=== PATIENT | male | born 1975 | race Two or more races ===

== ENCOUNTER 2017-06-23 11:52 | Inpatient (IN) | payer OTHER ==
[2017-06-23 11:56] VITALS: BMI 21.0
--- NOTE | 2017-06-23 17:13 | HP ---
CIWA Score - CIWA Score Nausea/Vomitin-Mild Nausea/No Vomiting Muscle Tremors: 2 Anxiety: 2 Agitation: 1-Slight > Activity Paroxysmal Sweats: 2 Orientation: 1-Uncertain about Date Tacttile Disturbances: 2-Mild Itch/Numbness/Burn Auditory Disturbances: 0-None Visual Disturbances: 1-Very Mild Sensitivity Headache: 2-Mild CIWA-Ar Total Score: 14 Admission ROS S - HPI Chief Complaint: WITHDRAWAL SYMPTOMS Allergies/Adverse Reactions: Allergies Allergy/AdvReac Type Severity Reaction Status Date / Time penicillin G Allergy Hives Verified 06/23/17 16:46 History of Present Illness: 41 Y.O. MAN WITH AN EXTENSIVE HISTORY OF ALCOHOL AND COCAINE DEPENDENCE IS HERE SEEKING DETOX. HE DOES NOT HAVE A SIGNIFICANT PERIOD SOBER AND DENIES RECENT DETOX/REHAB SERVICES. Exam Limitations: No Limitations - Ebola screening Have you traveled outside of the country in the last 21 days: No Have you had contact with anyone from an Ebola affected area: No Have you been sick,other than usual withdrawal symptoms: No Do you have a fever: No - Review of Systems Constitutional: Chills, Diaphoresis, Loss of Appetite, Unintentional Wgt. Loss EENT: reports: No Symptoms Reported Respiratory: reports: No Symptoms reported Cardiac: reports: Lightheadedness GI: reports: No Symptoms Reported : reports: Dysuria (H/O KIDNEY STONES) Musculoskeletal: reports: Back Pain, Neck Pain Integumentary: reports: No Symptoms Reported Neuro: reports: No Symptoms reported Endocrine: reports: No Symptoms Reported Hematology: reports: Anemia (H/O JOHANNE), Easy Bleeding, Easy Bruising Psychiatric: reports: Judgement Intact, Mood/Affect Appropiate, Orientated x3, Depressed Other Systems: Reviewed and Negative (BIPOLAR) Patient History - Patient Medical History Hx Anemia: Yes (NO MEDICATIONS ) Hx Asthma: No Hx Chronic Obstructive Pulmonary Disease (COPD): No Hx Cancer: No Hx Cardiac Disorders: No Hx Congestive Heart Failure: No Hx Hypertension: No Hx Hypercholesterolemia: No Hx Pacemaker: No HX Cerebrovascular Accident: No Hx Seizures: No Hx Diabetes: No Hx Gastrointestinal Disorders: No Hx Liver Disease: No Hx Genitourinary Disorders: No Hx Sexually Transmitted Disorders: Yes (syphilis at age 18) Hx Renal Disease (ESRD): No Hx Thyroid Disease: No Hx Human Immunodeficiency Virus (HIV): Yes (HIV DX 1996) Hx Hepatitis C: No Hx Depression: Yes Hx Suicide Attempt: Yes (pill overdose in 2012) Hx Bipolar Disorder: Yes Hx Schizophrenia: No - Patient Surgical History Past Surgical History: No Hx Neurologic Surgery: No Hx Cataract Extraction: No Hx Cardiac Surgery: No Hx Lung Surgery: No Hx Breast Surgery: No Hx Breast Biopsy: No Hx Abdominal Surgery: No Hx Appendectomy: No Hx Cholecystectomy: No Hx Genitourinary Surgery: No Hx Section: No Hx Orthopedic Surgery: No Anesthesia Reaction: No - PPD History Previous Implant?: Yes Documented Results: Negative w/o proof Implanted On Prior R Admission?: No PPD to be Administered?: Yes - Reproductive History Patient is a Female of Child Bearing Age (11 -55 yrs old): No - Smoking Cessation Smoking history: Current every day smoker Have you smoked in the past 12 months: Yes Aproximately how many cigarettes per day: 20 Hx Chewing Tobacco Use: No Initiated information on smoking cessation: Yes 'Breaking Loose' booklet given: 06/23/17 - Substance & Tx. History Hx Alcohol Use: Yes Hx Substance Use: Yes Substance Use Type: Alcohol, Cocaine Hx Substance Use Treatment: Yes (DETOX: 1999; REHAB: 2014) - Substances Abused Crack Route: Smoking Frequency: 1-2 times per week Amount used: $300 Age of first use: 16 Date of Last Use: 06/22/17 Alcohol-beer Route: Oral Frequency: Daily Amount used: 3-6 pks. Age of first use: 11 Date of Last Use: 06/22/17 Family Disease History - Family Disease History Family History: Denies Admission Physical Exam BHS - Vital Signs Vital Signs: Vital Signs - 24 hr 06/23/17 11:54 Temperature 97.8 F Pulse Rate 81 Respiratory 19 Rate Blood Pressure 112/66 - Physical General Appearance: Yes: Disheveled, Sweating, Anxious HEENTM: Yes: Hearing grossly Normal, Normocephalic Respiratory: Yes: Chest Non-Tender, Lungs Clear, Normal Breath Sounds, No Respiratory Distress, No Accessory Muscle Use Neck: Yes: No masses,lesions,Nodules, Trachea in good position Breast: Yes: Breast Exam Deferred Cardiology: Yes: Regular Rhythm, Regular Rate Abdominal: Yes: Normal Bowel Sounds, Non Tender, Flat Genitourinary: Yes: Dysuria (REPORTS HEMATURIA) Back: Yes: Normal Inspection Musculoskeletal: Yes: Back pain Extremities: Yes: Normal Capillary Refill, Normal Inspection Neurological: Yes: order entry specialist II-XII NML intact, Alert, Normal Mood/Affect, Normal Response Integumentary: Yes: Normal Color, Dry, Warm Lymphatic: Yes: Within Normal Limits - Diagnostic (1) Alcohol dependence with uncomplicated withdrawal Current Visit: Yes Status: Chronic (2) Cocaine dependence, uncomplicated Current Visit: Yes Status: Chronic (3) Kidney stones Current Visit: Yes Status: Chronic (4) Nicotine dependence Current Visit: Yes Status: Chronic (5) HIV (human immunodeficiency virus infection) Current Visit: Yes Status: Chronic Cleared for Admission [facility] - Detox or Rehab [facility] Level of Care: Medically Managed Detox Regimen/Protocol: Librium [facility] Breath Alcohol Content Breath Alcohol Content: 0.163 Urine Drug Screen - Results Drug Screen Negative: No Urine Drug Screen Results: ELIECER-Cocaine
[2017-06-23] MEDS ORDERED: MAG HYDROX/AL HYDROX/SIMETH 30 ML UNIT-DOSE CUP PO PRN (17:27)
[2017-06-23] MEDS ORDERED: MENTHOL/PHENOL 1 EACH UD MM PRN (17:27)
[2017-06-23] MEDS ORDERED: chlordiazePOXIDE HCL 25 MG CAPSULE PO PRN (17:27)
[2017-06-23] MEDS ORDERED: LOPERAMIDE HCL 2 MG CAPSULE PO PRN (17:27)
[2017-06-23] MEDS ORDERED: ACETAMINOPHEN 325 MG TABLET (FP) PO PRN (17:27)
[2017-06-23] MEDS ORDERED: hydrOXYzine PAMOATE 50 MG CAPSULE (FP) PO PRN (17:27)
[2017-06-23] MEDS ORDERED: MAGNESIUM HYDROX 2400MG/30ML ORAL SUSPENSION 30 ML CUP PO PRN (17:27)
[2017-06-23] MEDS ORDERED: guaiFENesin/D-METHORPHAN HB 10 ML UNIT-DOSE CUPS PO PRN (17:27)
[2017-06-23] MEDS ORDERED: MAGNESIUM CITRATE 300 ML BOTTLE PO PRN (17:27)
[2017-06-23] MEDS ORDERED: P-EPHED 60MG/TRIPROLIDI 2.5MG TABLET PO PRN (17:27)
[2017-06-23] MEDS ORDERED: diphenhydrAMINE HCL 50 MG CAPSULE PO PRN (17:29)
[2017-06-23] MEDS ORDERED: chlordiazePOXIDE HCL 25 MG CAPSULE PO ONE (18:15)
[2017-06-23] MEDS: THIAMINE HCL 100 MG TABLET (FP) PO SCH (22:50)
[2017-06-23] MEDS: chlordiazePOXIDE HCL 25 MG CAPSULE PO SCH (22:50)
[2017-06-24 02:35] LABS: URINE APPEARANCE CLEAR; URINE BILIRUBIN NEGATIVE (NEGATIVE); URINE BLOOD NEGATIVE (NEGATIVE); URINE COLOR COLORLESS; URINE GLUCOSE (UA) NEGATIVE (NEGATIVE); URINE KETONE NEGATIVE (NEGATIVE); URINE LEUK ESTERASE NEGATIVE (NEGATIVE); URINE NITRITE NEGATIVE (NEGATIVE); URINE PROTEIN NEGATIVE (NEGATIVE); URINE UROBILINOGEN NEGATIVE mg/dL (0.2-1.0)
[2017-06-24] MEDS: chlordiazePOXIDE HCL 25 MG CAPSULE PO SCH ×4 (05:13→22:25)
[2017-06-24] MEDS: PRENATAL VITAMINS W/ FOLIC ACID TABLET (FP) PO SCH (10:09)
[2017-06-24] MEDS: NICOTINE POLACRILEX 2 MG GUM BC PRN ×2 (10:10→22:29)
[2017-06-24] MEDS: NICOTINE 21 MG/24 HOURS TOPICAL PATCH TD SCH (10:10)
[2017-06-24] MEDS: IBUPROFEN 400 MG TABLET (FP) PO PRN (10:13)
[2017-06-24 10:15] LABS: MCH 31.6 pg (25.7-33.7); MCHC 32.7 g/dl (32.0-35.9); MEAN CELL VOLUME 96.5 fl (80-96); MEAN PLT VOLUME 8.9 fl (7.5-11.1); PLATELET COUNT 140 K/MM3 (134-434); RDW 16.5 % (11.9-15.9); WHITE BLOOD COUNT 2.3 K/mm3 (4.0-10.0)
[2017-06-24 10:24] LABS: ALBUMIN 3.5 g/dl (3.4-5.0); ANION GAP 5 (8-16); CALCIUM 8.3 mg/dL (8.5-10.1); CO2 30 mmol/L (21-32); GLUCOSE,RANDOM 105 mg/dL (74-106); SGOT/AST 19 U/L (15-37); SGPT/ALT 32 U/L (12-78)
[2017-06-24 10:26] LABS: ALK PHOS 67 U/L (45-117); BILIRUBIN,TOTAL 0.4 mg/dL (0.2-1.0); TOT PROT 6.9 g/dl (6.4-8.2)
[2017-06-24 12:14] LABS: URINE LEUK ESTERASE Negative (NEGATIVE)
--- NOTE | 2017-06-24 13:58 | CONSULT ---
[facility] Psychiatric Consult - Data Date of interview: 06/24/17 Admission source: [facility] Identifying data: First admission to [facility] for this 41 y/o male seeking detox treatment on for alcohol and cocaine (crack) dependence.Patient is ,a father of one,homeless,unemployed and supported on Public Assistance. Substance Abuse History: Confirmed by patient in this interb=view.See current [facility] report for details : Smoking history: Current every day smoker. Have you smoked in the past 12 months: Yes. Aproximately how many cigarettes per day: 20. Hx Chewing Tobacco Use: No. Initiated information on smoking cessation: Yes. 'Breaking Loose' booklet given: 06/23/17. - Substance & Tx. History. Hx Alcohol Use: Yes. Hx Substance Use: Yes. Substance Use Type: Alcohol, Cocaine. Hx Substance Use Treatment: Yes (DETOX: 1999; REHAB: 2014). - Substances Abused. Crack. Route: Smoking. Frequency: 1-2 times per week. Amount used: $300. Age of first use: 16. Date of Last Use: 06/22/17. Alcohol-beer. Route: Oral. Frequency: Daily. Amount used: 3-6 pks. Age of first use: 11. Date of Last Use: 06/22/17 Medical History: Anemia,HIV infection since 1996 and past history of treatment for syphilis (age 18). Psychiatric History: Reportedly diagnosed with Bipolar Disorder.Prescribed depakote 750 mg po bid + olanzapine 15 mg/hs.Patient admits to a history of multiple psychiatric hospitalizations ([facility] and various other sites) throughout his " more than 20 year history " of mental illness.Mr Dyer indicates that the housestaff psychiatrist at [facility] in [facility] oversees his medications management.Patient endorses a history of suicide attempts via overdoses and rosey-mutilation (wrist-cutting in 2011). Physical/Sexual Abuse/Trauma History: No reported history of abuse. Additional Comment: Urine Drug Screen Results: ELIECER-Cocaine.Noted. Mental Status Exam - Mental Status Exam Alert and Oriented to: Time, Place, Person Cognitive Function: Good Patient Appearance: Well Groomed Mood: Nervous, Withdrawn, Anxious Affect: Mood Congruent, Constricted Patient Behavior: Fatigued, Talkative, Appropriate, Cooperative Speech Pattern: Clear, Appropriate Voice Loudness: Normal Thought Process: Goal Oriented Thought Disorder: Not Present Hallucinations: Denies Suicidal Ideation: Denies Homicidal Ideation: Denies Insight/Judgement: Poor Sleep: Poorly, Difficulty falling asleep Appetite: Good Muscle strength/Tone: Normal Gait/Station: Normal Psychiatric Findings - Problem List ([place] 1, 2,3) (1) Alcohol dependence with uncomplicated withdrawal Current Visit: Yes Status: Acute (2) Cocaine dependence, uncomplicated Current Visit: Yes Status: Acute (3) Nicotine dependence Current Visit: Yes Status: Acute (4) Substance induced mood disorder Current Visit: Yes Status: Acute (5) Bipolar disorder Current Visit: Yes Status: Chronic (6) Insomnia Current Visit: Yes Status: Acute - Initial Treatment Plan Initial Treatment Plan: Psychoeducation.Sleep hygiene.Detoxification in progress.Medications : depakote 500 mg po bid + zyprexa 15 mg po hs + ambien 5 mg po hs prn.Side effects/benefits of each drug are discussed with the patient.He is made aware of the risks for blood dyscrasias,sedation,weight gain, liver dysfunction,alopecia (valproate),metabolic syndrome,cardiovascular adverse events (olanzapine) and parasomnias (ambien).Mr Dyer reports history of good tolerability to this regimen and consents (verbally) to adhere to this plan of care.Valproic acid level requested.Will follow.Observation.Noted pharmacy claims of 03/23/17 at [facility] # [id number] for depakote 250 mg tab # 180/30 days + olanzapine 15 mg tab # 30 (no renewals since that date).
--- NOTE | 2017-06-24 17:03 | PN ---
S CIWA - CIWA Score Nausea/Vomitin-No Nausea/No Vomiting Muscle Tremors: 3 Anxiety: 4-Mod. Anxious/Guarded Agitation: 3 Paroxysmal Sweats: 3 Orientation: 0-Oriented Tacttile Disturbances: 0-None Auditory Disturbances: 0-None Visual Disturbances: 0-None Headache: 0-None Present CIWA-Ar Total Score: 13 BHS Progress Note (SOAP) Subjective: Sweating,interrupted sleep,restless Objective: 06/24/17 17:02 Vital Signs - 8 hr 06/24/17 06/24/17 10:00 15:27 Temperature 97.9 F 97.9 F Pulse Rate 73 65 Respiratory 20 17 Rate Blood Pressure 116/62 121/78 Laboratory Tests 06/23/17 06/24/17 06/24/17 20:35 07:50 07:50 WBC 2.3 L RBC 4.30 Hgb 13.6 Hct 41.5 MCV 96.5 H MCH 31.6 MCHC 32.7 RDW 16.5 H Plt Count 140 MPV 8.9 Sodium 141 Potassium 4.1 Chloride 106 Carbon Dioxide 30 Anion Gap 5 L BUN 14 Creatinine 1.0 Creat Clearance w eGFR > 60 Random Glucose 105 Calcium 8.3 L Total Bilirubin 0.4 AST 19 ALT 32 Alkaline Phosphatase 67 Total Protein 6.9 Albumin 3.5 Urine Color Colorless Urine Appearance Clear Urine pH 6.0 Ur Specific [place] 1.002 Urine Protein Negative Urine Glucose (UA) Negative Urine Ketones Negative Urine Blood Negative Urine Nitrite Negative Urine Bilirubin Negative Urine Urobilinogen Negative Ur Leukocyte Esterase Negative RPR Titer 06/24/17 07:50 WBC RBC Hgb Hct MCV MCH MCHC RDW Plt Count MPV Sodium Potassium Chloride Carbon Dioxide Anion Gap BUN Creatinine Creat Clearance w eGFR Random Glucose Calcium Total Bilirubin AST ALT Alkaline Phosphatase Total Protein Albumin Urine Color Urine Appearance Urine pH Ur Specific [place] Urine Protein Urine Glucose (UA) Urine Ketones Urine Blood Urine Nitrite Urine Bilirubin Urine Urobilinogen Ur Leukocyte Esterase RPR Titer Nonreactive labs noted Assessment: 06/24/17 17:03 Withdrawal sx. Plan: Continue detox
[2017-06-24] MEDS: ZOLPIDEM TARTRATE 5 MG TABLET PO PRN (22:25)
[2017-06-24] MEDS: THIAMINE HCL 100 MG TABLET (FP) PO SCH (22:25)
[2017-06-24] MEDS: DIVALPROEX SODIUM 500 MG TABLET E.C. PO SCH (22:25)
[2017-06-24] MEDS: OLANZapine 7.5 MG TABLET PO SCH (22:55)
[2017-06-25] MEDS: chlordiazePOXIDE HCL 25 MG CAPSULE PO SCH ×3 (05:50→17:44)
[2017-06-25] MEDS: DIVALPROEX SODIUM 500 MG TABLET E.C. PO SCH ×2 (12:04→23:41)
[2017-06-25] MEDS: PRENATAL VITAMINS W/ FOLIC ACID TABLET (FP) PO SCH (12:05)
[2017-06-25] MEDS: NICOTINE 21 MG/24 HOURS TOPICAL PATCH TD SCH (12:06)
--- NOTE | 2017-06-25 13:01 | PN ---
S CIWA - CIWA Score Nausea/Vomitin-Mild Nausea/No Vomiting Muscle Tremors: 3 Anxiety: 4-Mod. Anxious/Guarded Agitation: 3 Paroxysmal Sweats: 3 Orientation: 0-Oriented Tacttile Disturbances: 0-None Auditory Disturbances: 0-None Visual Disturbances: 0-None Headache: 0-None Present CIWA-Ar Total Score: 14 S Progress Note (SOAP) Subjective: Sweating,anxiety,tremors,interrupted sleep,restless Objective: 06/25/17 13:02 Vital Signs - 8 hr 06/25/17 06/25/17 06:50 11:38 Temperature 96.4 F L 97.2 F L Pulse Rate 50 L 65 Respiratory 16 18 Rate Blood Pressure 131/72 119/68 Laboratory Tests 06/23/17 06/24/17 06/24/17 20:35 07:50 07:50 WBC 2.3 L RBC 4.30 Hgb 13.6 Hct 41.5 MCV 96.5 H MCH 31.6 MCHC 32.7 RDW 16.5 H Plt Count 140 MPV 8.9 Sodium 141 Potassium 4.1 Chloride 106 Carbon Dioxide 30 Anion Gap 5 L BUN 14 Creatinine 1.0 Creat Clearance w eGFR > 60 Random Glucose 105 Calcium 8.3 L Total Bilirubin 0.4 AST 19 ALT 32 Alkaline Phosphatase 67 Total Protein 6.9 Albumin 3.5 Urine Color Colorless Urine Appearance Clear Urine pH 6.0 Ur Specific [place] 1.002 Urine Protein Negative Urine Glucose (UA) Negative Urine Ketones Negative Urine Blood Negative Urine Nitrite Negative Urine Bilirubin Negative Urine Urobilinogen Negative Ur Leukocyte Esterase Negative Valproic Acid RPR Titer 06/24/17 06/25/17 07:50 07:40 WBC RBC Hgb Hct MCV MCH MCHC RDW Plt Count MPV Sodium Potassium Chloride Carbon Dioxide Anion Gap BUN Creatinine Creat Clearance w eGFR Random Glucose Calcium Total Bilirubin AST ALT Alkaline Phosphatase Total Protein Albumin Urine Color Urine Appearance Urine pH Ur Specific [place] Urine Protein Urine Glucose (UA) Urine Ketones Urine Blood Urine Nitrite Urine Bilirubin Urine Urobilinogen Ur Leukocyte Esterase Valproic Acid < 3.000 L RPR Titer Nonreactive labs noted Assessment: 06/25/17 13:03 Withdrawal sx Plan: Continue detox
--- NOTE | 2017-06-25 17:15 | EKG ---
Test Reason : Blood Pressure : / mmHG Vent. Rate : 074 BPM Atrial Rate : 074 BPM P-R Int : 120 ms QRS Dur : 094 ms QT Int : 386 ms P-R-T Axes : 053 083 063 degrees QTc Int : 428 ms NORMAL SINUS RHYTHM NORMAL ECG NO PREVIOUS ECGS AVAILABLE Confirmed by CHARLES VENTURA MD ([id number]) on 06/25/2017 5:15:33 PM Referred By: MAHNAZ BLNATON Confirmed By:CHARLES VENTURA MD
[2017-06-25] MEDS ORDERED: INSULIN (NOVOLOG) ASPART 100 UNITS/ML 10ML VIAL ONE (22:21)
[2017-06-25] MEDS: THIAMINE HCL 100 MG TABLET (FP) PO SCH (23:41)
[2017-06-25] MEDS: chlordiazePOXIDE 5 MG CAPSULE PO SCH (23:41)
[2017-06-25] MEDS: OLANZapine 7.5 MG TABLET PO SCH (23:42)
[2017-06-26] MEDS: chlordiazePOXIDE 5 MG CAPSULE PO SCH ×3 (05:44→17:06)
[2017-06-26] MEDS: NICOTINE 21 MG/24 HOURS TOPICAL PATCH TD SCH (10:13)
[2017-06-26] MEDS: DIVALPROEX SODIUM 500 MG TABLET E.C. PO SCH ×2 (10:13→22:13)
[2017-06-26] MEDS: PRENATAL VITAMINS W/ FOLIC ACID TABLET (FP) PO SCH (10:13)
--- NOTE | 2017-06-26 13:20 | PN ---
BHS Progress Note (SOAP) Subjective: interrupted sleep, sweats, shakes, neck pains Objective: 06/26/17 13:18 Vital Signs Temperature 98.1 F 06/26/17 09:28 Pulse Rate 76 06/26/17 09:28 Respiratory Rate 18 06/26/17 09:28 Blood Pressure 121/68 06/26/17 09:28 O2 Sat by Pulse Oximetry (%) Laboratory Tests 06/23/17 06/24/17 06/24/17 20:35 07:50 07:50 WBC 2.3 L RBC 4.30 Hgb 13.6 Hct 41.5 MCV 96.5 H MCH 31.6 MCHC 32.7 RDW 16.5 H Plt Count 140 MPV 8.9 Sodium 141 Potassium 4.1 Chloride 106 Carbon Dioxide 30 Anion Gap 5 L BUN 14 Creatinine 1.0 Creat Clearance w eGFR > 60 Random Glucose 105 Calcium 8.3 L Total Bilirubin 0.4 AST 19 ALT 32 Alkaline Phosphatase 67 Total Protein 6.9 Albumin 3.5 Urine Color Colorless Urine Appearance Clear Urine pH 6.0 Ur Specific [place] 1.002 Urine Protein Negative Urine Glucose (UA) Negative Urine Ketones Negative Urine Blood Negative Urine Nitrite Negative Urine Bilirubin Negative Urine Urobilinogen Negative Ur Leukocyte Esterase Negative Valproic Acid RPR Titer 06/24/17 06/25/17 07:50 07:40 WBC RBC Hgb Hct MCV MCH MCHC RDW Plt Count MPV Sodium Potassium Chloride Carbon Dioxide Anion Gap BUN Creatinine Creat Clearance w eGFR Random Glucose Calcium Total Bilirubin AST ALT Alkaline Phosphatase Total Protein Albumin Urine Color Urine Appearance Urine pH Ur Specific [place] Urine Protein Urine Glucose (UA) Urine Ketones Urine Blood Urine Nitrite Urine Bilirubin Urine Urobilinogen Ur Leukocyte Esterase Valproic Acid < 3.000 L RPR Titer Nonreactive pt aox3 , lying in bed then ambulating well neck good rom Assessment: 06/26/17 13:19 withdrawal sx's neck pain Plan: cont detox increase fluids analgesic balm d/c in am
[2017-06-26 21:44] VITALS: TEMP 98.1
[2017-06-26] MEDS ORDERED: METHYL SALICYLATE/MENTHOL OINT 30 GM TUBE TP SCH (22:00)
[2017-06-26] MEDS: THIAMINE HCL 100 MG TABLET (FP) PO SCH (22:13)
[2017-06-26] MEDS: ZOLPIDEM TARTRATE 5 MG TABLET PO PRN (22:13)
[2017-06-26] MEDS: OLANZapine 7.5 MG TABLET PO SCH (22:13)
[2017-06-26] MEDS: chlordiazePOXIDE HCL 10 MG CAPSULE PO SCH (22:14)
[2017-06-27] MEDS: chlordiazePOXIDE HCL 10 MG CAPSULE PO SCH (05:13)
[2017-06-27 06:02] VITALS: BP 130/62; PULSE 57
[2017-06-27] MEDS: DIVALPROEX SODIUM 500 MG TABLET E.C. PO SCH (09:49)
[2017-06-27] MEDS: PRENATAL VITAMINS W/ FOLIC ACID TABLET (FP) PO SCH (09:49)
[2017-06-27] MEDS: IBUPROFEN 400 MG TABLET (FP) PO PRN (09:50)
--- NOTE | 2017-06-27 11:44 | DS ---
[facility] Detox Discharge Summary Admission Date: 06/23/17 Discharge Date: 06/27/17 - History Present History: Alcohol Dependence, Cocaine Dependence Pertinent Past History: HIV Nephrolithiasis - Physical Exam Results Vital Signs: Vital Signs Temperature 98.1 F 06/27/17 06:00 Pulse Rate 57 L 06/27/17 06:00 Respiratory Rate 18 06/27/17 06:00 Blood Pressure 130/62 06/27/17 06:00 O2 Sat by Pulse Oximetry (%) Pertinent Admission Physical Exam Findings: Withdrawal symptoms Laboratory Tests 06/23/17 06/24/17 06/24/17 20:35 07:50 07:50 WBC 2.3 L RBC 4.30 Hgb 13.6 Hct 41.5 MCV 96.5 H MCH 31.6 MCHC 32.7 RDW 16.5 H Plt Count 140 MPV 8.9 Sodium 141 Potassium 4.1 Chloride 106 Carbon Dioxide 30 Anion Gap 5 L BUN 14 Creatinine 1.0 Creat Clearance w eGFR > 60 Random Glucose 105 Calcium 8.3 L Total Bilirubin 0.4 AST 19 ALT 32 Alkaline Phosphatase 67 Total Protein 6.9 Albumin 3.5 Urine Color Colorless Urine Appearance Clear Urine pH 6.0 Ur Specific [place] 1.002 Urine Protein Negative Urine Glucose (UA) Negative Urine Ketones Negative Urine Blood Negative Urine Nitrite Negative Urine Bilirubin Negative Urine Urobilinogen Negative Ur Leukocyte Esterase Negative Valproic Acid RPR Titer 06/24/17 06/25/17 07:50 07:40 WBC RBC Hgb Hct MCV MCH MCHC RDW Plt Count MPV Sodium Potassium Chloride Carbon Dioxide Anion Gap BUN Creatinine Creat Clearance w eGFR Random Glucose Calcium Total Bilirubin AST ALT Alkaline Phosphatase Total Protein Albumin Urine Color Urine Appearance Urine pH Ur Specific [place] Urine Protein Urine Glucose (UA) Urine Ketones Urine Blood Urine Nitrite Urine Bilirubin Urine Urobilinogen Ur Leukocyte Esterase Valproic Acid < 3.000 L RPR Titer Nonreactive Labs noted - Treatment Hospital Course: Detox Protocol Followed, Detoxed Safely, Responded well, Discharged Condition Good, Rehab Referral Accepted - Medication Discharge Medications: Ambulatory Orders Divalproex [Depakote -] 750 mg PO BID 06/23/17 Dolutegravir Sodium [Tivicay] 50 mg PO DAILY 06/23/17 Emtricitabine/Tenofovir [Truvada] 1 tab PO DAILY 06/23/17 Olanzapine [Zyprexa] 15 mg PO HS 06/23/17 - Diagnosis (1) Insomnia Status: Acute (2) Alcohol dependence with uncomplicated withdrawal Status: Acute (3) Cocaine dependence, uncomplicated Status: Chronic (4) HIV (human immunodeficiency virus infection) Status: Chronic (5) Kidney stones Status: Chronic (6) Nicotine dependence Status: Chronic Qualifiers: Nicotine product type: cigarettes Substance use status: uncomplicated Qualified Code(s): F17.210 - Nicotine dependence, cigarettes, uncomplicated - AMA Did Patient Leave Against Medical Advice: No (F/U with PCP in 1 week after rehab )
== END 2017-06-27 10:55 | disposition home or self-care (01) | DRG 774 ==
LOC: YASAS 11:52 → Y6N 17:27
PROVIDERS: ADMIT Internal Medicine; ATTEND Internal Medicine
PROC: HZ2ZZZZ Detoxification Services for Substance Abuse Treatment (ICD-10-PCS; principal; 2017-06-23)
DX: F10.230 Alcohol dependence with withdrawal, uncomplicated (principal); F14.20 Cocaine dependence, uncomplicated; F17.210 Nicotine dependence, cigarettes, uncomplicated; F19.24 Other psychoactive substance dependence with psychoactive substance-induced mood disorder; F31.9 Bipolar disorder, unspecified; G47.00 Insomnia, unspecified; Z21 Asymptomatic human immunodeficiency virus [HIV] infection status; Z87.438 Personal history of other diseases of male genital organs; Z91.5 Personal history of self-harm
CPT/HCPCS: 36415; 80053; 80164; 81003; 85027; 86593; 93005; 93010